=== PATIENT | female | born 1965 | race Caucasian/White ===

== ENCOUNTER 2017-02-05 12:26 | Day surgery (SDC) | payer BC ==
[2017-02-05] MEDS ORDERED: BUPIVACAINE HCL/PF 0.5% 30 ML VIAL ONE (13:13)
[2017-02-05] MEDS ORDERED: LIDOCAINE HCL 1% 20 ML VIAL ONE (13:13)
[2017-02-05] MEDS ORDERED: ceFAZolin 1 GM/10 ML VIAL ONE (13:16)
[2017-02-05] MEDS ORDERED: FAMOTIDINE IN SALINE, ISO-OSM 50 ML IV ONE (13:31)
[2017-02-05] MEDS ORDERED: ACETAMINOPHEN 1,000 MG/100 ML VIAL IV ONE (13:31)
[2017-02-05] MEDS ORDERED: MIDAZOLAM HCL 2 MG/2 ML VIAL ONE (13:32)
[2017-02-05] MEDS ORDERED: FENTANYL 100 MCG/2 ML VIAL ONE (13:38)
[2017-02-05] MEDS ORDERED: LIDOCAINE HCL 2% JELLY 1 APP/5 ML TUBE ONE (14:07)
[2017-02-05] MEDS ORDERED: MIDAZOLAM HCL 2 MG/2 ML SYR IV ONE ×2 (14:15→14:20)
[2017-02-05] MEDS ORDERED: LACTATED RINGERS 1,000 ML IV SCH ×3 (14:15→15:00)
[2017-02-05] MEDS ORDERED: LIDOCAINE HCL 1% 20 ML VIAL SUBCUT ONE ×2 (14:15→14:20)
[2017-02-05] MEDS ORDERED: FAMOTIDINE IN SALINE, ISO-OSM 20 MG/50 ML PIGGYBACK IV SCH ×2 (14:15→14:20)
[2017-02-05] MEDS ORDERED: ACETAMINOPHEN 1,000 MG/100 ML VIAL IV SCH ×2 (14:15→14:20)
[2017-02-05] MEDS ORDERED: ONDANSETRON HCL 4 MG/2 ML VIAL IV PRN (14:20)
[2017-02-05] MEDS ORDERED: MORPHINE SULFATE 10 MG/ML SYR IV PRN (14:20)
[2017-02-05] MEDS ORDERED: HYDROmorphone HCL 1 MG/ML SYR IV PRN (14:20)
[2017-02-05] MEDS ORDERED: FENTANYL 100 MCG/2 ML VIAL IV PRN (14:20)
[2017-02-05] MEDS ORDERED: KETOROLAC TROMETHAMINE 30 MG/ML VIAL ONE (14:31)
[2017-02-05 16:02] VITALS: TEMP 97.9; O2SAT 94
[2017-02-05 16:03] VITALS: RESP 14
[2017-02-05 16:04] VITALS: BP 157/90; PULSE 61
--- NOTE | 2017-02-05 16:40 | OPERATIVE REPORT ---
DATE OF SURGERY: 02/05/17 SURGEON: Hoang Tamez DPM ANESTHESIA: Local with monitored anesthesia care. PREOPERATIVE DIAGNOSES 1. Hallux abductovalgus with bunion, right foot. 2. Hammertoe, second digit, right foot. POSTOPERATIVE DIAGNOSES 1. Hallux abductovalgus with bunion, right foot. 2. Hammertoe, second digit, right foot. PROCEDURE PERFORMED 1. Adam-Gokul bunionectomy, right foot. 2. Hammertoe correction, second digit, right foot. HEMOSTASIS: Pneumatic ankle tourniquet. ESTIMATED BLOOD LOSS: Minimal. PROCEDURE IN DETAIL: The patient was escorted into the operating room and placed on the operating table in a supine position. A pneumatic ankle tourniquet was then placed about the patients right ankle. Following IV sedation, local anesthesia was obtained to the right first and second ray utilizing 20 mL of a 1:1 mixture of 1% lidocaine plain and 0.5% Marcaine plain. The right foot was then scrubbed, prepped and draped in the usual aseptic manner. An Esmarch bandage was utilized to exsanguinate the patients right foot, and a pneumatic ankle tourniquet was inflated. Attention was then directed to the dorsomedial aspect of the first metatarsophalangeal joint, where a 3-cm linear incision was made. The incision was deepened through the subcutaneous tissues, with care being taken to retract all vital neural and vascular structures. All bleeders were cauterized as necessary. At this time a linear longitudinal capsulotomy was performed over the dorsomedial aspect of the first metatarsophalangeal joint. The periosteal and capsular structures were reflected medially and laterally, thus exposing the first metatarsal head at the operative site. Next, utilizing the sagittal bone saw, the medial prominence was resected from the first metatarsal head and was passed from the operative field. Dissection was then continued into the first interspace via the original incision to the level of the fibular sesamoid. The fibular sesamoid was freed of its soft tissue attachments proximally, laterally and distally. The conjoined tendon of the adductor hallucis was transected at its insertion to the base of the proximal phalanx. Attention was then redirected to the medial aspect of the first metatarsal head for osteotomy cuts. The apex of the osteotomy pointed distally with arms pointing proximal dorsally and proximal plantarly. Upon completion of the osteotomy the capital fragment was distracted and shifted laterally approximately 3 mm and impacted upon the first metatarsal shaft and was held temporarily with a K-wire. Next, utilizing standard AO principals and techniques, a 2.9 x 18 mm cortical bone screw was inserted across the osteotomy with site excellent compression noted. The K-wire was then removed and the medial bone shelf was removed utilizing the sagittal saw. Correction of the deformity was assessed at this time and noted to be improved. Attention was then directed to the base of the proximal phalanx where a 3 mm medial based wedge was created. The wedge shaped portion of bone was removed. The osteotomy was then closed and held temporarily with a K-wire. A staple was then inserted on each side of the osteotomy with excellent compression noted. The K-wire was removed. Correction of the abductus was assessed at this time and noted to be well reduced. The wound was flushed with copious amounts of sterile normal saline. The periosteal and capsular structures were then reapproximated and coapted utilizing 2-0 Vicryl sutures. Subcuticular sutures were reapproximated and coapted utilizing 3-0 Vicryl suture, and the skin was reapproximated and coapted utilizing 4-0 nylon with horizontal mattress and simple interrupted suture technique. Attention was then directed to the dorsum of the second digit, right foot, where a 3 cm incision was made beginning at the second metatarsophalangeal joint and progressing distally to the distal interphalangeal joint. The incision was deepened through the subcutaneous tissues. A transverse tenotomy and capsulotomy was then performed over the proximal interphalangeal joint. The extensor bartholomew was then recessed to the second metatarsophalangeal joint. A dorsal medial and lateral capsulotomy was performed over this joint and the head of the second metatarsal was scooped utilizing periosteal elevator. The sagittal saw was then used to transect the head of the proximal phalanx which was passed from the operative field. A K-wire was then driven through the intermediate phalanx through the end of the toe and was retrograded proximally into the remaining portion of the proximal phalanx and second metatarsal head. Correction of the hammertoe deformity was assessed at this time and noted to be well reduced. The K-wire was bent dorsally and shortened. A pin cap was applied. The extensor tendon was then reapproximated and coapted utilizing 3-0 Vicryl sutures. Subcuticular tissues were reapproximated and coapted utilizing 3-0 Vicryl suture and skin was reapproximated and coapted utilizing 4-0 nylon with horizontal mattress and simple interrupted suture technique. Upon completion of the procedure, both wounds were dressed with Betadine-soaked Adaptic and covered with a sterile compressive dressing consisting of 4x4s and Jaiden. The pneumatic ankle tourniquet was then deflated and a prompt hyperemic response was noted to all digits of the right foot. An Yaakov wrap, stockinette and postoperative shoe were then applied. The patient tolerated the procedure and anesthesia well. She was transferred to the recovery room with vital signs stable and vascular status intact to all toes of the right foot. Following a period of postoperative monitoring, the patient will be discharged home on the following written and oral postoperative instructions. 1. Keep dressings dry and intact. 2. Avoid excessive ambulation. 3. Ice and elevate right foot when at rest. 4. Wear surgical shoe at all times when ambulating. 5. Contact Dr. Tamez for all postoperative followup care and if any problems arise. 6. Prescriptions were written for Dilaudid for pain. Copy to [facility]
--- NOTE | 2017-02-13 11:59 | PREOPERATIVE H&P ---
History of Present Illness (Char Mckeon; 01/19/2017 11:04 AM) The patient is a 51 year old female. Allergies (Char Mckeon; 01/19/2017 11:07 AM) Benadryl *ANTIHISTAMINES* Uncertain reaction. TraMADol HCl *ANALGESICS - OPIOID* itching, restless leg, hyperactivity Social History (Char Mckeon; 01/19/2017 11:04 AM) Alcohol Use Does not drink alcohol. Tobacco Use Never smoker. Medication History (Char Mckeon; 01/19/2017 11:09 AM) Zoloft (100MG Tablet, 1 Oral daily) Active. Ambien (10MG Tablet, 1 Oral PRN for insomnia) Active. Medications Reconciled Vitals (Char Mckeon; 01/19/2017 11:09 AM) 01/19/2017 11:09 AM Resp.: 16 (Unlabored) Physical Exam (Hoang Tamez DPM; 01/19/2017 2:27 PM) Musculoskeletal Lower Extremity Ankle/Foot: Foot - Evaluation of related systems reveals - well developed, well nourished and in no acute distress, alert and oriented x3 and neurovascularly intact bilaterally. Examination of the right foot reveals - normal strength and tone, normal foot and ankle movements and range of motion, no crepitus and no instability. Examination of the left foot reveals - no tenderness to palpation, no pain, no swelling, edema or erythema of surrounding tissue, normal foot and ankle movements and range of motion, no crepitus and no known fractures or deformities. Inspection and Palpation - Sensation is - normal, (R) and normal, ( L). Pulses - 2+, (R) and 2+, (L). Examination reveals - Note: Moderate HAV R foot with secondary hammertoe 2nd dig R. Assessment & Plan (Hoang Tamez DPM; 01/19/2017 2:29 PM) Acquired hallux valgus of right foot (M20.11) Impression: Pre-surg consult for Adam-Gokul procedure R foot. Procedure discussed, consent signed. Reviewed pre and post op instruction sheets. Rx percocet 5/325 for pain. Answered questions. Scheduled POFU. Acquired hammer toe of right foot (M20.41) Impression: Pre-surg consult for arthroplasty as well Signed by Hoang Tamez DPM (01/19/2017 2:29 PM) [facility]
== END 2017-02-05 15:40 | disposition home or self-care (01) ==
LOC: SDS 12:26
PROVIDERS: ATTEND Podiatrist Foot & Ankle Surgery
DX: M20.11 Hallux valgus (acquired), right foot (principal); M20.41 Other hammer toe(s) (acquired), right foot; Z72.0 Tobacco use; E66.9 Obesity, unspecified
CPT/HCPCS: J0690; J1885; J2250